=== PATIENT | male | born 1985 | race Caucasian/White ===

== ENCOUNTER 2022-02-09 08:43 | Emergency (ER) | payer OTHER, SELFPAY ==
--- NOTE | ~2022-02-09 | XR_ITS ---
XR hand RT min 3V 02/09/2022 09:03 Indication: Right hand pain after trauma Procedure: 3 views right hand Comparison: No prior studies for comparison. Findings: There is a nondisplaced fracture of the fifth metacarpal neck with mild volar angulation. M ild soft tissue swelling. No other fractures are identified. No erosive changes. No foreign bodies. C arpal bones are unremarkable. Impression: 1: Nondisplaced right fifth metacarpal neck fracture with mild volar angulation. Reviewed, dictated and finalized at location B. Impression: 1: Nondisplaced right fifth metacarpal neck fracture with mild volar angulation .
[2022-02-09 08:54] VITALS: BP 141/81; PULSE 90; RESP 18; TEMP 36.7; O2SAT 99
--- NOTE | 2022-02-09 09:13 | ED.UPPEXIN ---
HPI - Extremity Injury (Upper) General Chief Complaint: Extremity Injury, Upper Stated Complaint: Right Hand Pain Time Seen by Provider: 02/09/22 09:15 Source: patient and RN notes reviewed Mode of arrival: ambulatory Limitations: no limitations History of Present Illness HPI narrative: 36-year-old male presents to the [facility] with right fifth metacarpal pain and swelling. States at 315 yesterday he punched a metal supply cabinet at a baseball game. Has been icing and elevating it. Had it wrapped in an Abraham wrap Does have full range of motion. Sensation intact distal to injury. Positive radial pulse. Capillary refill under 2 seconds. History of RA, takes naproxen. Onset (ago): day(s) (1) Related Data Home Medications Medication Instructions Recorded Confirmed folic acid 1 mg tablet 1 tablet PO DAILY 02/09/22 02/09/22 hydroxyzine HCl 25 mg tablet 1 tablet PO DAILY 02/09/22 02/09/22 methotrexate sodium (PF) 25 mg/mL 25 mg subcut WEEKLY 02/09/22 02/09/22 injection solution montelukast 10 mg tablet 1 tablet PO DAILY 02/09/22 02/09/22 naproxen 500 mg tablet 1 tablet PO DAILY 02/09/22 02/09/22 venlafaxine 37.5 mg 1 cap PO DAILY 02/09/22 02/09/22 capsule,extended release 24 hr Allergies Allergy/AdvReac Type Severity Reaction Status Date / Time No Known Allergies Allergy Mild Verified 02/09/22 09:20 Review of Systems Review of Systems: All systems reviewed & are unremarkable except as noted in HPI and below Constitutional: Constitutional: Reports no additional constitutional complaints, Denies chills and Denies fever(s) Eyes: Eyes: Reports no additional eye complaints ENT: Reports system reviewed and no additional complaints, except as documented Cardiovascular: Cardiovascular: Reports no additional cardiovascular complaints Respiratory: Respiratory: Reports no additional respiratory complaints Gastrointestinal: Gastrointestinal: Reports no additional gastrointestinal complaints Musculoskeletal: Musculoskeletal: Reports as per HPI (right hand pain with swelling) Integumentary/Breasts: Skin/Breast: Reports system reviewed and no additional complaints, except as docu Neurologic: Reports system reviewed and no additional complaints, except as documented Psychiatric: Psychiatric: Reports no additional psychiatric complaints Allergic/Immunologic: Allergic/Immunologic: Reports no additional allergic/immunologic complaints PMFSH Past Medical History Medical History (Updated 02/09/22 @ 09:35 by Yumi Baron APRN) Anxiety and depression Rheumatoid arthritis Seasonal allergies Social History Social History (Updated 02/09/22 @ 09:30 by Yumi Baron APRN) Living arrangements: with family Gender identity (if verbalized by the patient): Male Comments At the time of my signature, I reviewed and agree with the nursing past medical, surgical, social, and family history. There is no relevant family history pertinent to the patient complaint. Exam Const: General: healthy appearing, no acute distress and alert Nutritional Appearance: well nourished Orientation/consciousness: patient oriented x3 Limitations: no limitations HENMT: Head: normal to inspection Ears: external ears normal Eyes: General: appearance normal, both eyes and all related structures Pupils: Equal, round and reactive pupils present Neck: Neck: normal visual inspection, no lymphadenopathy and no meningeal signs Chest: Chest palpation & inspection: normal inspection of the chest Resp: Effort & Inspection: normal respiratory effort and no use of accessory muscles Auscultation: clear to auscultation bilaterally, no crackles, no rales, no rhonchi and no wheezes Cardio: Rate: regular rate Rhythm: regular rhythm Back/Spine/Pelvis: Cervical Spine: normal cervical lordosis Thoracic/Lumbar Spine: thoracic and lumbar spine normal to inspection Skin: General skin exam: normal color Rashes: no rashes Wounds: no wounds Neuro:
== END 2022-02-09 09:45 | disposition home or self-care (01) ==
PROVIDERS: Emergency Provider Nurse Practitioner; PCP Family Medicine
DX: S62.366A Nondisplaced fracture of neck of fifth metacarpal bone, right hand, initial encounter for closed fracture (principal); W22.8XXA Striking against or struck by other objects, initial encounter; M06.9 Rheumatoid arthritis, unspecified; F41.9 Anxiety disorder, unspecified; F32.A Depression, unspecified
CPT/HCPCS: 29125; 73130; 99214; A4565; G0463